=== PATIENT | male | born 1960 | race Caucasian/White ===

== ENCOUNTER 2023-07-15 11:49 | Emergency (ER) | payer MEDICARE ==
[~2023-07-15] VITALS: Ht 180.3 cm; Wt 111.0 kg
[2023-07-15 12:12] VITALS: O2SAT 100
[2023-07-15] MEDS ORDERED: ACET-2708 MT (16:37)
[2023-07-15 16:55] VITALS: BP 159/70; PULSE 86; RESP 18; TEMP 98.1
== END 2023-07-15 16:56 | disposition home or self-care (01) ==
LOC: ER 11:49
DX: M25.562 Pain in left knee (principal); J45.909 Unspecified asthma, uncomplicated; Z98.890 Other specified postprocedural states
CPT/HCPCS: 73562; 73700; 93971; 99284